=== PATIENT | female | born 1940 | race Caucasian/White ===

== ENCOUNTER 2017-02-04 09:36 | Day surgery (SDC) | payer MEDICARE ==
[~2017-02-04] VITALS: Ht 167.6 cm; Wt 59.0 kg
[~2017-02-04 09:36] MED LIST: 0.9% Sodium Chloride 1,000 ML IV SCH; ALBU90AE IH; CAL1TABL2 PO; CHOL200047 PO; FLC50T PO; HYDR-3825 PO; KRIL500C PO; METO25TA99 PO; OMEP20TA86 PO; RANI150C4 PO; SENN-133 PO; Sodium Chloride LOK Flush 10 mL Syringe IV PRN; TIOT18CA3 IH; WARF5TAB7 PO; fentaNYL-PF 50 mCg/mL 2 mL Inj IVPUSH PRN
[2017-02-04 10:01] VITALS: BP 151/102; PULSE 70; RESP 16; O2SAT 100
[2017-02-04] MEDS ORDERED: 0.9% Sodium Chloride 1,000 ML IV ONE (10:44)
[2017-02-04 10:56] VITALS: BP 152/96; PULSE 75; RESP 14; O2SAT 97
[2017-02-04 11:05] VITALS: BP 147/85; PULSE 70; RESP 16; O2SAT 96
[2017-02-04 11:16] VITALS: BP 142/84; PULSE 73; RESP 14; O2SAT 99
--- NOTE | 2017-02-08 14:48 | PATH ---
SURGICAL PATHOLOGY Attending Physician:Monae Deltaorre CASE STATUS: Signed Out PATIENT NAME: DANNY PÉREZ PID: [id number] : 1940 DATE COLLECTED:02/04/2017 17:33 SPECIMEN: 1: Stomach, Polyp, Biopsy 2: Gastric, Biopsy 3: Esophagus, Biopsy CLINICAL HISTORY: 1). DISTAL GASTRIC POLYP 2). PROXIMAL GASTRIC MASS 3). DISTAL ESOPHAGUS BIOPSY FINAL DIAGNOSIS: 1. Distal Gastric Polyp: Hyperplastic polyp involving apparent antral mucosa with chronic active inflammation, but negative for atypia. Immunohistochemistry for Helicobacter is negative. Negative for intestinal metaplasia. Negative for malignancy. 2. Proximal Gastric Mass Biopsy: Squamous mucosa and gastric cardia-type mucosa, and fragments of squamous epithelium with chronic active inflammation, and a single focus highly suspicious for possible invasive squamous carcinoma (see microscopic description). Immunohistochemistry for Helicobacter negative. Negative for intestinal metaplasia. 3. Distal Esophagus Biopsy: Squamous mucosa with no gastric cardia-type mucosa identified. Acute and chronic inflammation with reactive epithelial changes and focal areas suspicious for possible squamous carcinoma (see microscopic description). ICD10 K29.70 GROSS DESCRIPTION: The specimen is received in three formalin filled containers labeled with the patient's name. 1). Received in formalin and labeled "distal gastric polyp" and consists of 2 portions of tissue which aggregate to 0.3 x 0.3 x 0.2 CM. The specimen is entirely submitted in cassettes 1A. 2). The specimen is sublabeled "proximal gastric mass" are 3 fragments of tissue which aggregate to 0.4 x 0.3 x 0.3 CM. The specimen is entirely submitted in cassette 2A. 3). The specimen is sublabeled "distal esophagus" and consists of 3 portions of tissue which aggregate to 0.3 x 0.3 x 0.2 CM. The specimen is entirely submitted in cassette 3A. 02/04/2017 DAC MICRO DESCRIPTION: Sections from part 1 are of gastric mucosa. The changes are consistent with a benign hyperplastic polyp, which is involved with chronic active inflammation. Immunohistochemistry for Helicobacter is performed and is negative. There is no atypia or evidence for malignancy. 2. Biopsy of proximal gastric mass: There is gastric cardia-type mucosa, and fragments of squamous mucosa involved with chronic active inflammation. Multiple sections are prepared and in one focus there appears to be entrapment of highly atypical squamous epithelium surrounded by reactive fibrous tissue and chronic inflammation. These areas are highly suspicious for invasive squamous carcinoma, but the area of involvement is so small that a definitive diagnosis does not appear to be appropriate. Special stains for Helicobacter are performed and are negative. Sections from part 3 are from the distal esophagus. This is squamous epithelium with no gastric epithelium identified. There is acute and chronic inflammation present and with multiple serial sections, there are a few areas that are suspicious for possible squamous carcinoma, but cannot be considered diagnosis. Slides from part 2 are reviewed by Drs. Connor Ricketts and Shayna Lara, who concur with the diagnosis. ICD-9 CODES: CPT CODES: 1: 48457, 85679 2: 73942, 24356, 37373 3: 21484 PROCEDURE/ADDENDA: Addendum SPI Addendum Diagnosis {Not Entered} Addendum Comment Dr. Lara reviewed the endoscopic images with Dr. Chu on 02/11/17. In the setting of a large malignant appearing esophageal mass, a diagnosis of squamous cell carcinoma is favored. However, because of the important clinical consequences of this diagnosis, the case will be forwarded to the [facility] for a second opinion. A p40 immunohistochemical stain will be performed and reported as a second addendum. Electronically Signed Out Shayna Lara MD Immunohistochemistry [facility] Interpretation {Not Entered} Results-Comments This addendum is issued to report the results of immunohistochemistry. The final diagnosis is unchanged. An immunohistochemical stain for p40 was performed on block 2A and is positive in the cells of interest. A control stain showed appropriate reactivity. Interpretation: Consistent with squamous origin. This test was developed and its performance characteristics determined by [facility]. It has not been cleared or approved by the [place]. [place]. Food and Drug Administration. The FDA has determined that such clearance or approval is not necessary. This test is used for clinical purposes. It should not be regarded as investigational or for research. Electronically Signed Out Shayna Lara MD Addendum SPI Addendum Diagnosis Slides reviewed at [facility] Pathology, by Dr. Janice Vega Distal gastric polyp (part 1) Polypoid gastric antral-type mucosa with active neutrophilic inflammation, foveolar hyperplasia and reactive epithelial changes. Negative for Helicobacter pylori microorganisms (confirmed on provided immunostain). Negative for intestinal metaplasia, dysplasia and invasive carcinoma. Proximal gastric mass biopsy (part 2) Cardia type mucosa with focus highly suspicious for invasive squamous cell carcinoma. Additional fragments of cardia type mucosa and squamous epithelium with chronic active inflammation. Negative for Helicobacter pylori microorganisms (confirmed on provided immunostain). See Comment. Distal esophagus biopsy (part 3) Acanthotic and polypoid squamous proliferation with features highly suspicious for invasive squamous cell carcinoma. See Comment. Comment: We agree with Drs. Shayna Lara, Karl Duarte, and Connor Ricketts in that biopsies from the proximal gastric mass and distal esophagus (parts 2 and 3) display irregularly shaped and atypical squamous nests and tongues with focal paradoxical keratinization involving inflamed submucosal tissue (highlighted by provided p40 immunostain in part 2). The clinical history of ulcer disease status post subtotal gastrectomy with Billroth-I anastomosis, now with dysphagia and malignant appearing distal esophageal mass/stricture (10 cm per endoscopy report) are noted. The overall morphologic findings are highly suspicious for invasive squamous call carcinoma. No goblet cell metaplasia or glandular differentiation is identified Clinical and radiologic correlation is recommended. Dr. Yoseph Sung and Dr. Chaparro Walton have reviewed employee representative levels on parts 2 and 3 and concur with the above interpretation on these parts. Addendum Comment Please see [facility] Pathology report [id number] for complete details. Electronically Signed Out Shayna Lara MD Electronically Signed Out Karl Duarte MD [facility] Pathology [facility] [address], [place] [address] Technical component performed at [facility], [facility] [address], [place], [address]
--- NOTE | 2017-02-10 00:12 | ENDO ---
[address] [address] ENDOSCOPY PROCEDURE PATIENT: DANNY PÉREZ : 1940 MR#: [id number] ADMIT: 02/04/2017 JOB ID: [id number] PREOPERATIVE DIAGNOSIS(ES): 1. Dysphagia. 2. Esophageal mass or stricture. POSTOPERATIVE DIAGNOSIS(ES): 1. 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 2. Gastric polyp. OPERATION: Upper endoscopy with biopsy. SURGEON: Kentrell Chu MD INDICATIONS: A 76-year-old female who has dysphagia. A barium swallow showed a long stricture or esophageal mass. She has had a previous subtotal gastrectomy for ulcer disease years ago. After discussing options with the patient, it was elected to proceed with an upper endoscopy and biopsy. FINDINGS: She had a malignant-appearing mass that ran approximately 10 cm from involving the distal esophagus to the GE junction. She has had a previous gastrectomy with a Billroth-I anastomosis. There was a distal polyp in the stomach. Retroflexed views of the cardia showed the large mass. DESCRIPTION OF PROCEDURE: The procedure and sedation plan was discussed with the patient and nursing staff, and a procedural time-out was held. She received viscous Xylocaine as a gargle, and then intravenous Versed and fentanyl. An 11 mm Olympus endoscope was passed transorally through her esophagus, and I was actually able to pass it quite easily past the mass into the stomach, with the results as stated above. Multiple biopsies of the mass at its distal and proximal ends were obtained, as well as the gastric polyp. 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 PLAN: Await histology, but I am also going to order a CT scan of her chest, abdomen, and pelvis.
== END 2017-02-04 23:59 | disposition home or self-care (01) ==
LOC: END 09:36
PROVIDERS: ATTEND Surgery
DX: K31.7 Polyp of stomach and duodenum (principal); K29.70 Gastritis, unspecified, without bleeding; K22.2 Esophageal obstruction; R13.10 Dysphagia, unspecified; I10 Essential (primary) hypertension; I48.0 Paroxysmal atrial fibrillation; J44.9 Chronic obstructive pulmonary disease, unspecified; M47.9 Spondylosis, unspecified; K27.9 Peptic ulcer, site unspecified, unspecified as acute or chronic, without hemorrhage or perforation; Z87.891 Personal history of nicotine dependence; Z79.01 Long term (current) use of anticoagulants

== ENCOUNTER 2017-02-15 10:48 | Emergency (ER) | payer MEDICARE ==
[2017-02-15] VITALS (10 sets, daily range): BP systolic 98–143; BP diastolic 55–78; PULSE 75–139; RESP 16–22; O2SAT 97–100
[~2017-02-15] VITALS: Ht 167.6 cm; Wt 56.4 kg
[~2017-02-15 10:48] MED LIST changes: -0.9% Sodium Chloride 1,000 ML IV SCH; -Sodium Chloride LOK Flush 10 mL Syringe IV PRN; -fentaNYL-PF 50 mCg/mL 2 mL Inj IVPUSH PRN
[2017-02-15] MEDS ORDERED: 0.9% Sodium Chloride 1,000 ML IV ONE ×2 (10:59→16:15)
[2017-02-15] MEDS ORDERED: HYDROmorphone 1 mg/mL Inj IVPUSH PRN (11:00)
[2017-02-15] MEDS ORDERED: HYDROmorphone 1 mg/mL Inj IVPUSH ONE (11:00)
--- NOTE | 2017-02-15 11:07 | ED.REPORT ---
HPI-General Illness Date of Service Feb 15, 2017 ED Provider: Vanessa Ramirez MD A pleasant 76 year old female with esophageal cancer and paroxysmal atrial fibrillation presents to the ER via EMS accompanied by her daughters, son, and friend complaining of "regurgitation" onset last night. She states that she is able to swallow but is unable to keep anything down. Associated symptoms include chronic neck pain. Patient lives independently with her . Nursing Notes Stated Complaint: VOMITING Chief Complaint: Dysrhythmia/Cardiac Nursing Notes Reviewed: Yes Allergies: Coded Allergies: celecoxib (Verified Allergy, Mild, 02/04/17) Penicillins (Verified Allergy, Unknown, ITCHING, 02/04/17) codeine (Verified Allergy, Unknown, ITCHING, 02/04/17) Uncoded Allergies: CELEBRAX (Allergy, Unknown, 02/03/17) Scheduled Flecainide Acetate (Flecainide Acetate) 50 Mg Tablet 50 MG PO DAILY Metoprolol Succinate ER (Metoprolol Succinate ER) 25 Mg Tab.er.24h 25 MG PO DAILY Omeprazole-Expunged Drug, Do Not Renew! (Omeprazole-Expunged Drug, Do Not Renew! ) 20 Mg Tablet.dr 20 MG PO DAILY Ranitidine (Ranitidine) 150 Mg Capsule 150 MG PO BID Tiotropium [place] (Spiriva) 18 Mcg Cap.w.dev 18 MCG IH DAILY Warfarin Sodium (Warfarin Sodium) 5 Mg Tablet 5 MG PO DAILY Scheduled PRN Hydrocodone-Acetaminophen 7.5-325 mg (Hydrocodone-Acetaminophen 7.5-325 mg) 1 Each Tablet 1 TABLET PO Q4H PRN PRN For Pain Sennosides (Senna) 8.6 Mg Tablet 8.6 MG PO PRN For Constipation Miscellaneous Medications Albuterol Sulfate (Proair Respiclick) 90 Mcg Aer.pow.ba 90 MCG IH Chadd Cit/Mag/D3/Zn/Recycle Worker/Ravi/Bor (Citracal-Vit D + Magnesium Tab) 1 Each Tablet 1 EACH PO Cholecalciferol (Vitamin D3) (Vitamin D3) 2,000 Unit Capsule 2,000 UNIT PO Krill Oil (Krill Oil) 500 Mg Capsule 500 MG PO General Time Seen by MD: 10:54 Chief Complaint Other (Regurgitation) Hx Obtained From: Patient, Daughter Arrived By: Ambulance Sudden in Onset?: No Onset Occurred: Yesterday Symptom Duration: Since onset Associated with: Reports: Neck pain Pertinent Negative: Pt denies other symptoms Context Related History: Reports Cancer (esophageal ) Recent Healthcare: Previous diagnosis Similar Sx Previous: No Past Medical History Past Medical History Esophageal Cancer currently, history of breast cancer Perforated ulcers Degenerative disc disease Reports: COPD Reports: Atrial fibrillation Past Surgical History Stomach resection Lumpectomy Right arm lymph node removal Reports: Appendectomy, Cholecystectomy, Tonsillectomy Smoking History Former Smoker Social History Other Social History: Good social support Review of Systems Full Review of Systems Constitutional: Denies: Chills, Fever Cardiovascular: Denies: Chest pain GI: Denies: Abdominal pain, Diarrhea Musculoskeletal: Reports: Neck pain Complete sys rev & neg: except as marked. Physical Exam Vital Signs Vital Signs Date Time Temp Pulse Resp B/P Pulse Ox O2 Delivery O2 Flow Rate FiO2 02/15/17 15:30 75 18 119/66 02/15/17 15:00 76 17 107/59 97 Room Air 02/15/17 14:30 78 16 98/55 99 Room Air 02/15/17 14:00 76 16 122/70 99 Room Air 02/15/17 13:30 78 16 113/70 99 Room Air 02/15/17 13:00 79 17 129/78 100 Room Air 02/15/17 12:30 76 18 121/70 100 Room Air 02/15/17 12:00 77 17 103/58 99 Room Air 02/15/17 11:00 139 22 131/69 98 Room Air Initial VS: Reviewed Head / Eyes: Atraumatic, Normocephalic Abdomen / GI: Soft, Non-tender, No guarding, No rebound, No distention Extremities: Vascular intact, Neuro intact, No swelling, No tenderness Skin: Warm, Dry, No cyanosis Psychiatric: Mood/affect normal, Behavior normal, Normal thought content General/Constitutional: Awake, Alert, Well developed, Cooperative Appearance / Presentation: Positive: Cachectic ENT: Airway patent, Mucous membranes moist Able to manage secretions. Difficulty swallowing anything else. Neck: Full range of motion, No midline vertebral tend Mass to the Left side of the neck. Respiratory / Chest: Breath sounds NL, No respiratory distress, No rales, No rhonchi, No wheezing Cardiovascular: Heart rate NL, Regular rhythm, Heart sounds NL, Cap refill not delayed, Peripheral circulation NL Converted from atrial fibrillation between arrival in ER and physical examination. Neurologic: Oriented X3, Speech NL, No motor deficits, No sensory deficits Interpretation & Diagnostics Lab Results Interpretation Result Diagram: 02/15/17 1045 02/15/17 1045 Test 02/15/17 10:45 White Blood Count 10.9th/mm3 (3.8-10.1) Red Blood Count 4.40mil/mm3 (3.90-5.20) Hemoglobin 10.2g/dL (12.0-15.6) Hematocrit 34.4% (35.0-46.0) Mean Corpuscular Volume 78.2fL (81-100) Mean Corpuscular Hemoglobin 23.2pg (27.0-35.0) Mean Corpuscular Hemoglobin Concent 29.7% (32.0-37.0) Red Cell Distribution Width 18.3% (12.3-15.4) Platelet Count 434bil/L (150-400) Neutrophils (%) (Auto) 77.3% (40-74) Lymphocytes (%) (Auto) 15.4% (14-46) Monocytes (%) (Auto) 6.8% (4-12) Eosinophils (%) (Auto) 0% (0-5) Basophils (%) (Auto) 0.2% (0-3) Prothrombin Time 16.9sec (8.1-12.5) Prothromb Time International Ratio 1.57ratio Sodium Level 140mEq/L (134-144) Potassium Level 4.0mEq/L (3.5-5.2) Chloride Level 100mEq/L (97-108) Carbon Dioxide Level 21mmol/L (18-29) Blood Urea Nitrogen 10mg/dL (8-27) Creatinine 0.66mg/dL (0.57-1.00) Estimat Glomerular Filtration Rate 124mL/min (>59) Glucose Level 100mg/dL (60-99) Calcium Level 9.7mg/dL (8.5-10.1) Magnesium Level 2.0mg/dL (1.6-2.6) Total Bilirubin 0.2mg/dL (0.0-1.2) Aspartate Amino Transf (AST/SGOT) 19U/L (0-50) Alanine Aminotransferase (ALT/SGPT) 11U/L (0-32) Alkaline Phosphatase 92U/L (25-165) Total Protein 7.0g/dL (6.4-8.4) Albumin 3.8g/dL (3.4-5.0) Lipase 12U/L (13-60) Re-Eval/Medical Decision Med Decision/Clinical Course 76-year-old woman with known esophageal gastric cancer presents with obstruction. She had been in rapid A. fib this converted shortly after arrival she had taken her own flecainide prior to arrival. Long day in the ER multiple consultations eventually she chose to go home hospice has been initiated she has had 2 L of fluid. We will continue her flecainide will change her metoprolol extended release to metoprolol titrate 12.5 mg twice a day to try and prevent recurrent atrial fibrillation. She understands expected course of symptoms. Given her prescription for Roxanol to use. Family is in the room all questions are answered. Source of Hx: Old records Time of Eval: 11:19 Re-Evaluation/Progress Note: Discussed risks and benefits of treatment options including feeding tube and NG tube placement. Time of Eval: 12:59 Re-Evaluation/Progress Note: PCP has initiated hospice consult. Consultation #1: Referral / Consult Name: Amanda Loving MD Consulted With: Surgeon Call Returned at: 12:52 Note: Discussed stent placement vs jejunostomy. Will discuss with Dr. Chu and call back. Consultation #2: Referral / Consult Name: Kentrell Chu MD Consulted With: Surgeon Call Returned at: 13:21 Note: In patient room now. Counseled Regarding: Diagnosis, Lab results Discharge & Departure Primary Impression: Mass of esophagus Additional Impression: Esophageal obstruction Disposition: Home Discharge Condition All VS Reviewed: Yes Additional Instructions: What a long day you have had. Thank you for being so patient. You have had 2 liters of fluid in the ER today. You were initially in atrial fibrillation. The flecanide you took prior to arrival did convert you back to sinus rhythm. I don't know if this rapid heart rate contributed to the severe dysphagia. You can at least manage secretions at this point. You've had a bit of luck with water and sucking on hard candies. I've spoken with surgeons and gastroenterologists. We don't have a perfect solution for you. You have opted to go home tonight and I think that is a very reasonable choice. Hospice has been consulted and has already been in touch. You can continue to try and drink small amounts as you are able to tolerate. Foods should be as thin and easy to swallow as possible. You didn't like the dilaudid we tried - it caused a headache. Morphine was better. At this time, the vicodin is difficult to swallow and liquid vicodin is a fairly large volume. I've given you a prescription for Roxanol - oral morphine concentrate. This can justs go under your tongue to be absorbed and swallowed if you can (but not required). I'm sending you home with your wonderful family. I hope you can be a bit more comfortable in your own bed and I hope all the laughter your family has continues for you. I wish you the very best. Referrals: Herlinda Barboza MD (PCP) Scribe Attestation Portions of this note were transcribed by Truman Dietrich. I, Dr. Ramirez, personally performed the history, physical exam and medical decision-making; I reviewed and confirmed the accuracy of the information in the transcribed note. Signed by: Lynn Vela, 02/15/2017 at 15:17 copies to: Herlinda Barboza MD, Shawna L MD Feb 15, 2017 11:06 TRUMAN DIETRICH Feb 15, 2017 11:15
[2017-02-15 11:13] LABS: MONOCYTES % (AUTO) 6.8 % (4-12); Mean Corpuscular Hemoglobin 23.2 pg (27.0-35.0); Mean Corpuscular Volume 78.2 fL (81-100); NEUTROPHILS % (AUTO) 77.3 % (40-74); Platelet Count 434 bil/L (150-400)
[2017-02-15 11:14] LABS: BASOPHILS % (AUTO) 0.2 % (0-3); EOSINOPHILS % (AUTO) 0 % (0-5)
[2017-02-15] MEDS ORDERED: Magnesium Sulf 2 Gm/50mL Water 2 GM in IV Premix 1 EACH IV ONE (11:40)
[2017-02-15] MEDS ORDERED: Ketorolac 15 mg/mL Inj IVPUSH ONE (12:00)
[2017-02-15 14:03] LABS: INR 1.57 ratio
--- NOTE | 2017-02-15 18:40 | CONS ---
[address] [address] CONSULTATION REPORT PATIENT: DANNY PÉREZ : 1940 MR#: [id number] ADMIT: 02/15/2017 JOB ID: [id number] DATE OF SERVICE: 02/15/2017 INDICATIONS: The patient is a 76-year-old female whom I recently met. A week ago, I did an upper endoscopy and she has a nearly obstructing distal esophageal malignancy. The preliminary pathology report is that it is squamous cell carcinoma, but it does extend down through the GE junction. Her history is also complicated by a previous subtotal gastrectomy for peptic ulcer disease done years ago. She had after her endoscopy, I ordered a CT scan of her chest, abdomen and pelvis. This shows a distal esophageal/proximal gastric mass which by the CT scan is 7 x 4 x 6 cm. There is no obvious adenopathy. She also has no evidence of liver metastases or carcinomatosis. I previously discussed these results with the patient and she expressed interest in considering palliative radiochemotherapy. I told her that surgical resection would be very complex because of her previous subtotal gastrectomy and that she likely would require a colonic interposition. I had told her about seeing surgeons either at [facility] or at the [facility]. She subsequently chose not to pursue any definitive surgical solution, that she wanted palliative care. She was staying on a liquid diet, but then in the last 24 hours she has not been able to tolerate liquids. She developed atrial fibrillation. She is also on warfarin because of paroxysmal AFib. Dr. Montiel asked if I would see her to consider placement of a feeding tube or other palliation. I had spoken to the patient last week about a stent. PAST MEDICAL HISTORY: ILLNESSES: 1. History of peptic ulcer disease status post a subtotal gastrectomy with B1 anastomosis. 2. Paroxysmal atrial fibrillation. 3. Anticoagulation status on therapeutic warfarin. The patient believes she has been keeping her warfarin down. 4. Degenerative disk disease. 5. COPD. OPERATIONS: 1. Subtotal gastrectomy, lumpectomy, sentinel node biopsy for breast cancer. 2. Appendectomy. 3. Cholecystectomy. 4. Tonsillectomy. HABITS: Former smoker. SOCIAL HISTORY: She is supported by her three children, all three of whom are present in the emergency department. She is a . 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 REVIEW OF SYSTEMS: She again reiterated her desire for hospice care and only palliative care. She now has told me that she does not even want to pursue palliative radiation chemotherapy, but she would like to buy some time to spend time with her family including grandchildren who live afar. PHYSICAL EXAMINATION: GENERAL: Alert, appearing in no distress. She is in the emergency department. VITAL SIGNS: Currently brachial blood pressure 131/69, pulse looks sinus to me, 80-90 range, respiratory rate 22, O2 sat 98%. HEENT: PERRLA. EOMI. No scleral icterus. NECK: No masses. LUNGS: Clear. CARDIAC EXAM: Regular rate and rhythm. IMPRESSION: Large, obstructing gastroesophageal junction tumor which histologically is being read out a squamous cell although a 2nd opinion is being obtained from the [facility]. Photographs of the mass are present from when I did the endoscopy. I think there is no doubt that this is a malignant not a benign process. Again, as stated above, surgical management if she chose to do so is complicated by the fact that she has had a subtotal gastrectomy. That would mean a colonic interposition for a curative resection or palliative resection. The other issue is that with a subtotal gastrectomy almost certainly she cannot have a percutaneous endoscopic gastrostomy tube. I think her best form of palliation would be esophageal stenting. I have placed a call to Gastroenterology. Dr. Waldrop apparently is on-call. He told me he does not do stents but he is going to have Dr. Valerio call me. The next issue is her anticoagulation status. I have ordered a pro time and, of course, nothing can happen less the pro time is in normal range. I also discussed further with her and her family palliative care and hospice services. She is clearly interested in pursuing that. PLAN: Further plans will be based upon the results of her INR and availability of Gastroenterology to place a stent.
--- NOTE | 2017-02-15 23:34 | ER ---
[address] [address] EMERGENCY DEPARTMENT REPORT PATIENT: DANNY PÉREZ : 1940 MR#: [id number] ADMIT: 02/15/2017 JOB ID: [id number] DATE OF SERVICE: 02/15/2017 REASON FOR CONSULTATION: Dysphagia, esophageal cancer. PRESENT ILLNESS: A pleasant 76-year-old female with history esophageal cancer diagnosed via biopsy, consistent with squamous cell carcinoma, history of paroxysmal atrial fibrillation, on flecainide, COPD, status post appendectomy, cholecystectomy and subtotal gastrectomy, presents for consultation for dysphagia. The patient was accompanied by her son, daughter and friend complaining of heartburn and difficulty swallowing to any form of food. In the past, the patient underwent an upper endoscopy by Dr. Kentrell Chu, performed on February 04, 2017, which showed status post Billroth I anastomosis, large mass in the cardia of the stomach, and a 10 cm stricture involving the distal esophagus to the GE junction. Biopsies were consistent of squamous cell carcinoma. Dr. Chu was able to pass a 11 mm Olympus endoscope through the esophagus into the stomach. The patient underwent a CT of the chest, abdomen and pelvis performed February 05, 2017, which showed a gastroesophageal mass, no evidence of metastases, bilateral kidney stones, trace left pleural effusion, and remote granuloma disease. The patient presents for further evaluation from a GI standpoint. PAST MEDICAL HISTORY: As stated above. PAST SURGERIES: As stated above. MEDICATIONS: As an outpatient are flecainide, metoprolol, omeprazole, ranitidine, Spiriva, Coumadin. ALLERGIES: 1. CELECOXIB. 2. PENICILLIN. 3. CODEINE. 4. CELEBREX. SOCIAL HISTORY: Good social support. Former smoker. FAMILY HISTORY: Noncontributory. REVIEW OF SYSTEMS: The patient denies headache, blurred vision. Positive for nausea and vomiting. No chest pain, shortness of breath, abdominal pain, skin rashes, joint pain. PHYSICAL EXAMINATION: Vital signs upon presentation: Her temperature is unknown, pulse is 75, respiratory rate 18, blood pressure 119/60, and 97% on room air. Generally: In no acute distress. Head: No scars. Eyes: Anicteric. Throat: Supple. Lungs: Clear to auscultation bilaterally. Cardiovascular: Regular rhythm and rate. Abdomen: Soft, nondistended, nontender. Normal bowel sounds. Extremities: No cyanosis, clubbing or edema. LABORATORIES: Show a white count 10.9, hemoglobin 10.2, hematocrit 34, MCV 78, platelet count of 434. sodium 140, k 4.0, chloride 100, bicarb 21, BUN 10, creatinine 0.66, glucose 100, calcium 9.7, magnesium 2.0, total bili 0.2, AST 19, ALT 11, alk phos 92, total protein 7.0, albumin 3.8, lipase of 12. PT of 16.9, INR 1.57. ASSESSMENT AND PLAN: This is a pleasant 76-year-old female with history of paroxysmal atrial fibrillation, on flecainide and Coumadin, history of cholecystectomy, tonsillectomy, appendectomy, Billroth I gastric surgery in the past, recent diagnosis of esophageal cancer by esophagogastroduodenoscopy and biopsy by Dr. Kentrell Chu, significant for squamous cell carcinoma on February 10, 2017, presents here for dysphagia. I have spoken to Dr. Kentrell Chu and Dr. Chu, and also talked to Dr. Javy Valerio. We have discussed with the patient what her wishes are, which is palliative care and no heroic measures. I have offered the patient to do an upper endoscope to make sure there is no food impaction, and explained the risks and benefits, and the patient at this point in time wishes for God to take its course and nothing invasive or heroic. The patient wishes to go home. In regard to an esophageal stent, the patient again wishes nothing heroic at this point in time to be done. RECOMMENDATIONS: 1. Hold off on any form of upper endoscopy per the patient's wishes. 2. Hospice care at this point in time, to be discharged home today. RADHA
== END 2017-02-15 18:11 | disposition home or self-care (01) ==
LOC: SED 10:48
DX: K22.8 Other specified diseases of esophagus (principal); K22.2 Esophageal obstruction; C15.9 Malignant neoplasm of esophagus, unspecified; Z87.891 Personal history of nicotine dependence; Z85.3 Personal history of malignant neoplasm of breast; Z79.01 Long term (current) use of anticoagulants; Z88.0 Allergy status to penicillin; Z88.1 Allergy status to other antibiotic agents; Z88.5 Allergy status to narcotic agent; J44.9 Chronic obstructive pulmonary disease, unspecified
CPT/HCPCS: 36415; 80053; 83690; 83735; 85025; 85610; 96374; 96375; 99284; J1170; J1885; J2270; J7030